=== PATIENT | male | born 1935 | race Caucasian/White ===

== ENCOUNTER 2021-07-08 08:45 | Day surgery (SDC) | payer OTHER ==
[2021-07-04 11:52] VITALS: BMI 24.7
[2021-07-08] MEDS ORDERED: LIDOCAINE HCL/PF 2% SDV 5ML VIAL ONE (09:58)
[2021-07-08] MEDS ORDERED: PROPOFOL 20 ML ONE ×4 (09:59)
[2021-07-08] MEDS ORDERED: ETOMIDATE 20 MG/10 ML AMPUL IVPUSH ONE (10:34)
[2021-07-08 11:44] VITALS: TEMP 97.4
[2021-07-08 12:26] VITALS: BP 127/68; PULSE 68
== END 2021-07-08 12:22 | disposition home or self-care (01) ==
LOC: FASU-ENDO 08:45
PROVIDERS: ATTEND Internal Medicine Gastroenterology
PROC: 0DB68ZX Excision of Stomach, Via Natural or Artificial Opening Endoscopic, Diagnostic (ICD-10-PCS; 2021-07-08)
PROC: 0D5H8ZZ Destruction of Cecum, Via Natural or Artificial Opening Endoscopic (ICD-10-PCS; principal; 2021-07-08 10:36)
DX: D50.0 Iron deficiency anemia secondary to blood loss (chronic) (principal); K55.20 Angiodysplasia of colon without hemorrhage; K29.50 Unspecified chronic gastritis without bleeding
CPT/HCPCS: 82962; 88305-TC; 88342-TC